=== PATIENT | female | born 1990 | race Hispanic/Latino ===

== ENCOUNTER 2018-01-31 18:15 | Emergency (ER) | payer MEDICAID, OTHER ==
[2018-01-31 19:11] LABS: HCG,QUALITATIVE URINE POSITIVE (NEGATIVE)
[2018-01-31 19:14] LABS: SQUAMOUS EPITHIAL 4 /hpf (0-5); URINE BILIRUBIN NEGATIVE (NEGATIVE); URINE BLOOD NEGATIVE (NEGATIVE); URINE CLARITY Clear (Clear); URINE COLOR Yellow (YELLOW); URINE GLUCOSE (UA) NORMAL (Normal); URINE LEUKOCYTE ESTERASE NEG Leu/uL (Negative); URINE PROTEIN NEGATIVE (NEGATIVE); URINE UROBILINOGEN NORMAL mg/dL (0.2-1.0)
--- NOTE | 2018-01-31 19:15 | C.PDOC ---
History Of Present Illness 27yo female, comes to ER reporting headache since yesterday with associated nausea. Patient denies any vomiting. She reports she is currently and that her LMP was in mid-October. Otherwise, no weakness, numbness, and no other c omplaints. Time Seen by Provider: 01/31/18 19:11 Chief Complaint (Nursing): Headache History Per: Patient History/Exam Limitations: no limitations Onset/Duration Of Symptoms: Days Current Symptoms Are (Timing): Still Present Additional History Per: Patient Past Medical History Reviewed: Historical Data, Nursing Documentation, Vital Signs Vital Signs: Last Vital Signs Temp 98.4 F 01/31/18 18:26 Pulse 90 01/31/18 18:26 Resp 16 01/31/18 18:26 BP 117/71 01/31/18 18:26 Pulse Ox 98 01/31/18 18:26 - Medical History PMH: Hyperthyroidism (no longer on meds), Mitral Valve Prolapse Denies: Chronic Kidney Disease Surgical History: No Surg Hx Family History: States: Unknown Family Hx, Hypertension - Social History Hx Alcohol Use: No Hx Substance Use: No - Immunization History Hx Tetanus Toxoid Vaccination: No Hx Influenza Vaccination: No Hx Pneumococcal Vaccination: Yes Review Of Systems Except As Marked, All Systems Reviewed And Found Negative. Constitutional: Negative for: Fever, Chills Gastrointestinal: Positive for: Nausea. Negative for: Vomiting Neurological: Positive for: Headache. Negative for: Weakness, Numbness Physical Exam - Physical Exam Appears: Non-toxic, No Acute Distress Skin: Normal Color, Warm, Dry Head: Atraumatic, Normacephalic Eye(s): bilateral: Normal Inspection, PERRL, EOMI, Other (fundoscopic exam normal; no edema, no bleeding) Oral Mucosa: Moist Neck: Normal ROM, Supple Chest: Symmetrical Cardiovascular: Rhythm Regular Respiratory: Normal Breath Sounds Gastrointestinal/Abdominal: Normal Exam, Soft Back: Normal Inspection Extremity: Normal ROM, No Pedal Edema Neurological/Psych: Oriented x3 ED Course And Treatment - Laboratory Results Result Diagrams: 01/31/18 19:37 01/31/18 19:37 O2 Sat by Pulse Oximetry: 98 (RA) Pulse Ox Interpretation: Normal Progress Note: Patient with history of UTI, denies any urinary symptoms at present. Labs and UA ordered. Patient given Tylenol 975mg PO. Disposition Counseled Patient/Family Regarding: Diagnosis - Disposition Referrals: [facility] [Outside] Disposition: HOME/ ROUTINE Disposition Time: 21:02 Condition: STABLE Prescriptions: Acetaminophen [Tylenol 325mg tab] 650 mg PO Q4 #20 tab Instructions: Medications and , Headache, Adult Forms: [facility] (Lithuanian) - POA Present On Arrival: None - Clinical Impression Clinical Impression: Headache, - Scribe Statement The provider has reviewed the documentation as recorded by the Livia Willis Provider Attestation: All medical record entries made by the Livia were at my direction and personally dictated by me. I have reviewed the chart and agree that the record accurately reflects my personal performance of the history, physical exam, medical decision making, and the department course for this patient. I have also personally directed, reviewed, and agree with the discharge instructions and disposition.
[2018-01-31 19:41] LABS: BASO % 0.2 % (0.0-2.0); EOS # 0.1 K/uL (0.0-0.7); EOS % 0.9 % (0.0-4.0); HEMOGLOBIN 11.8 g/dL (11.0-16.0); LYMPH # 1.6 K/uL (1.0-4.3); LYMPH % 17.4 % (20.0-40.0); MEAN CELL VOLUME 88.1 fL (81.0-99.0); MEAN CORPUSCULAR HEMOGLOBIN 30.7 pg (27.0-31.0); MEAN CORPUSCULAR HGB CONC 34.9 g/dL (33.0-37.0); MEAN PLATELET VOLUME 7.5 fL (7.2-11.7); MONO # 0.7 K/uL (0.0-0.8); MONO % 7.3 % (0.0-10.0); NEUT # 6.9 K/uL (1.8-7.0); NEUT % 74.2 % (50.0-75.0); RBC 3.84 Mil/uL (3.80-5.20); RED CELL DISTRIBUTION WIDTH 12.4 % (11.5-14.5); WHITE BLOOD COUNT 9.3 K/uL (4.8-10.8)
[2018-01-31 19:58] LABS: ALB/GLOB RATIO 1.3 (1.0-2.1); ALT/SGPT 16 U/L (9-52); AST/SGOT 18 U/L (14-36); BLOOD UREA NITROGEN 11 mg/dL (7-17); CALCIUM 9.2 mg/dl (8.6-10.4); GFR NON-AFRICAN AMERICAN > 60
[2018-01-31 21:25] VITALS: BP 96/57; PULSE 69; RESP 20; TEMP 98.9
[2018-02-01 10:15] VITALS: O2SAT 98
== END 2018-01-31 21:24 | disposition home or self-care (01) ==
LOC: C.ER 18:15
DX: O26.90 Pregnancy related conditions, unspecified, unspecified trimester (principal); Z3A.00 Weeks of gestation of pregnancy not specified; R51 Headache

== ENCOUNTER 2018-06-03 18:49 | Emergency (ER) | payer MEDICAID, OTHER ==
[2018-06-03 18:56] VITALS: BP 110/74; PULSE 114; RESP 20; TEMP 98.5; O2SAT 95
[2018-06-03 19:49] LABS: INFLUENZA A B NEGATIVE FOR FLU A/B (NEGATIVE)
--- NOTE | 2018-06-03 20:06 | C.PDOC ---
History Of Present Illness 27 y/o female presents to the ER complaining of fever, nasal congestion, runny nose, productive cough with phlegm, and sore throat which has been present for the past 2 days. She is also feeling chest congestion and has been coughing up yellowish mucous. Patient states that she went to her PCP yesterday. Her PCP did not do flu swab rapid strep test, he informed her that she has viral syndrome. She decided to visit the ER so she could have the tests done. She notes that she is 33 weeks . Denies having nausea,vomiting, and abdominal pain. Chief Complaint (Nursing): Cough, Cold, Congestion History Per: Patient History/Exam Limitations: no limitations Onset/Duration Of Symptoms: Days Current Symptoms Are (Timing): Still Present Severity: Moderate Past Medical History Reviewed: Historical Data, Nursing Documentation, Vital Signs Vital Signs: Last Vital Signs Temp 98.5 F 06/03/18 18:53 Pulse 114 H 06/03/18 18:53 Resp 20 06/03/18 18:53 BP 110/74 06/03/18 18:53 Pulse Ox 95 06/03/18 18:53 - Medical History PMH: Hyperthyroidism (no longer on meds), Mitral Valve Prolapse Denies: Chronic Kidney Disease Surgical History: No Surg Hx Family History: States: Hypertension - Social History Hx Alcohol Use: Yes Hx Substance Use: No - Immunization History Hx Tetanus Toxoid Vaccination: No Hx Influenza Vaccination: No Hx Pneumococcal Vaccination: No Review Of Systems Constitutional: Positive for: Fever. Negative for: Chills, Weakness Eyes: Negative for: Redness ENT: Positive for: Nose Discharge, Nose Congestion, Throat Pain. Negative for: Mouth Swelling Cardiovascular: Negative for: Chest Pain Respiratory: Positive for: Cough. Negative for: Shortness of Breath Gastrointestinal: Negative for: Nausea, Vomiting, Diarrhea Genitourinary: Negative for: Dysuria, Hematuria Musculoskeletal: Negative for: Back Pain Skin: Negative for: Rash Neurological: Negative for: Weakness, Numbness, Dizziness Physical Exam - Physical Exam Appears: Non-toxic, No Acute Distress Skin: Normal Color, Warm, Dry, No Rash Head: Atraumatic, Normacephalic Eye(s): bilateral: Normal Inspection Ear(s): Bilateral: Normal Nose: Other (enlarged turbinates) Throat: No Erythema, No Exudate, Other (no swelling, no injection,) Neck: Supple Chest: Symmetrical Cardiovascular: Rhythm Regular Respiratory: Normal Breath Sounds, No Rales, No Rhonchi, No Wheezing, Other (normal inspiratory effort) Gastrointestinal/Abdominal: Normal Exam, Soft, No Tenderness, No Guarding, No Rebound Neurological/Psych: Oriented x3, Normal Speech ED Course And Treatment O2 Sat by Pulse Oximetry: 95 (RA) Pulse Ox Interpretation: Normal Medical Decision Making Medical Decision Making: Plan: --this patient clinically could have an early pneumonia. due to her i will not get a chest xray at this time and will treat empirically with zithromax Flu Swab neg --Rapid Strep Test neg Disposition Counseled Patient/Family Regarding: Studies Performed, Diagnosis, Need For Followup, Rx Given - Disposition Disposition: HOME/ ROUTINE Disposition Time: 20:23 Condition: STABLE Prescriptions: Azithromycin [Zithromax] 250 mg PO DAILY #4 tab Instructions: Community-Acquired Pneumonia in Adults Forms: [facility] (Lithuanian), General Discharge Instructions - Clinical Impression Clinical Impression: Community acquired pneumonia - [place] / [employer] / Resident Statement MD/DO has reviewed & agrees with the documentation as recorded. - Scribe Statement The provider has reviewed the documentation as recorded by the Livia Mayo Provider Attestation All medical record entries made by the Guerreroibdelon were at my direction and personally dictated by me. I have reviewed the chart and agree that the record accurately reflects my personal performance of the history, physical exam, medical decision making, and the department course for this patient. I have also personally directed, reviewed, and agree with the discharge instructions and disposition.aysha Attestation
== END 2018-06-03 20:36 | disposition home or self-care (01) ==
LOC: C.ER 18:49
DX: O99.513 Diseases of the respiratory system complicating pregnancy, third trimester (principal); J18.9 Pneumonia, unspecified organism; Z3A.33 33 weeks gestation of pregnancy